=== PATIENT | female | born 1985 | race Caucasian/White ===

== ENCOUNTER → 2017-07-03 15:30 | Outpatient (CLI) | payer SELFPAY ==
[2017-07-04 13:10] LABS: Chlamydia Trachomatis by PCR Negative (Negative); Neisserai gonorrhoeae by PCR Negative (Negative); Probe Check PASS; Sample Adequacy Control PASS; Specimen Processing Control PASS
[2017-07-06 12:21] LABS: HPV Reflexed? NOT INDICATED
== END ==
PROVIDERS: Visit Provider Obstetrics & Gynecology
DX: Z12.4 Encounter for screening for malignant neoplasm of cervix (principal); Z11.3 Encounter for screening for infections with a predominantly sexual mode of transmission
CPT/HCPCS: 87491; 87591; 88175; G0145

== ENCOUNTER → 2018-06-13 | Outpatient (CLI) | payer SELFPAY ==
[2018-06-13 15:46] LABS: Chlamydia Trachomatis by PCR Negative (Negative); Neisserai gonorrhoeae by PCR Negative (Negative); Probe Check PASS; Sample Adequacy Control PASS; Specimen Processing Control PASS
== END | disposition home or self-care (01) ==
LOC: LABSPEC 13:40
PROVIDERS: Visit Provider Obstetrics & Gynecology
DX: Z11.3 Encounter for screening for infections with a predominantly sexual mode of transmission (principal)
CPT/HCPCS: 87491; 87591

== ENCOUNTER → 2018-07-25 | Outpatient (CLI) | payer SELFPAY ==
[2018-07-25 12:45] LABS: Absolute Lymphocyte Count 1.75 X10^3/ul (0.83-4.51); Absolute Neutrophil Count 5.1 X10^3/uL (2.0-7.7); Basophil# 0.02 X10^3/uL; Basophil% 0.3 % (0-1); Eosinophil# 0.05 X10^3/uL; Eosinophils% 0.7 % (0-5); Hematocrit 40.1 % (37-47); Hemoglobin 13.3 g/dl (12.0-15.0); Lymphocyte # 1.75 X10^3/ul (4.0); Lymphocyte % 24.1 % (19-41); Mean Corp Hgb Conc 33.2 g/gl (32-36); Mean Corpuscular Hgb 28.1 pg (27.0-32.0); Mean Corpuscular Volume 84.8 fL (81-99); Mean Platelet Vol. 10.4 fl (6.2-12.0); Monocyte# 0.33 X10^3/uL; Monocyte% 4.5 % (0-10); Neutrophil # 5.12 X10^3/uL (2.7-7.7); Neutrophil % 70.4 % (47-70); Platelet Count 274 K/mm3 (150-450); RBC Distribution Width CV 14.1 % (11.6-14.6); RBC Distribution Width SD 43.8 fl (35.1-43.9); Red Blood Count 4.73 M/mm3 (4.2-5.4); White Blood Count 7.3 K/mm3 (4.4-11.0)
[2018-07-25 13:02] LABS: POSITIVE COUNT NO; POSITIVE DIFFERENTIAL NO
[2018-07-25 13:03] LABS: POSITIVE MORPHOLOGY NO
[2018-07-25 13:11] LABS: Color, Urine Yellow (Yellow); Glucose, Dipstick Normal (Normal); Ketone-Dipstick Negative (Negative); Leukocyte Esterase-Dipstick Negative /ul (Negative); Nitrite-Dipstick Negative (Negative); Occult Blood-Urine Negative /ul (Negative); Protein-Dipstick Negative (Negative); Urine Bilirubin Dipstick Negative (Negative); Urine Clarity Sl. Cloudy (Clear); Urine Urobilinogen Normal (Normal)
[2018-07-25 13:29] LABS: Thyroid Stim Hormone (TSH) 1.87 uIU/mL (0.358-3.74)
[2018-07-25 13:56] LABS: HIV - WCH Non-Reactive (Nonreactive); Rubella IgG 422.1 IU/mL
[2018-07-26 03:32] LABS: Prenatal RPR NONREACTIVE (NONREACTIVE)
[2018-07-26 10:51] LABS: HEPATITIS B SURFACE AG Negative (Negative); Hep C Antibodies 0.2 s/co ratio (0.0-0.9)
== END | disposition home or self-care (01) ==
LOC: WOBLAB 10:31
PROVIDERS: Visit Provider Obstetrics & Gynecology
DX: Z34.82 Encounter for supervision of other normal pregnancy, second trimester (principal)
CPT/HCPCS: 36415; 81002; 84443; 85025; 86703; 86762; 86803; 87340

== ENCOUNTER → 2018-11-06 09:36 | Outpatient (CLI) | payer OTHER, SELFPAY ==
[2018-11-06 10:54] LABS: Glucose Challenge Gest 1H 50g 123 mg/dL (70-140)
[2018-11-06 10:57] LABS: Hematocrit 37.1 % (37-47); Hemoglobin 11.9 g/dL (12.0-15.0); Mean Corp Hgb Conc 32.1 g/dL (32-36); Mean Corpuscular Hgb 28.4 pg (27.0-32.0); Mean Corpuscular Volume 88.5 fL (81-99); Platelet Count 272 K/mm3 (150-450); RBC Distribution Width CV 13.5 % (11.6-14.6); RBC Distribution Width SD 43.6 fl (35.1-43.9); Red Blood Count 4.19 M/mm3 (4.2-5.4); White Blood Count 10.7 K/mm3 (4.4-11.0)
== END ==
PROVIDERS: Visit Provider Obstetrics & Gynecology
DX: Z34.83 Encounter for supervision of other normal pregnancy, third trimester (principal)
CPT/HCPCS: 36415; 82950; 85027

== ENCOUNTER → 2018-12-19 15:58 | Outpatient (CLI) | payer OTHER, SELFPAY ==
[2018-12-19 18:09] LABS: 24 Hour Urine Protein 842.8 mg/24HR (<150 MG/24HR); 24HR. UA Prot. Total Volume 2150 mL; Urine Protein (24 Hour) 39.2 mg/dL (<11.9)
== END ==
PROVIDERS: Referring Provider Obstetrics & Gynecology; Visit Provider Obstetrics & Gynecology
DX: Z34.83 Encounter for supervision of other normal pregnancy, third trimester (principal); R80.9 Proteinuria, unspecified
CPT/HCPCS: 82570; 84156

== ENCOUNTER → 2018-12-25 11:00 | Outpatient (CLI) | payer OTHER, SELFPAY ==
[2018-12-25 14:26] LABS: AST(SGOT) 15 U/L (15-37); Alanine Aminotransfer ALT/SGPT 24 U/L (13-56); Uric Acid 5.2 mg/dL (2.6-6.0)
[2018-12-25 14:30] LABS: Hematocrit 37.9 % (37-47); Hemoglobin 12.2 g/dL (12.0-15.0); Mean Corp Hgb Conc 32.2 g/dL (32-36); Mean Corpuscular Hgb 27.7 pg (27.0-32.0); Mean Corpuscular Volume 86.1 fL (81-99); Mean Platelet Vol. 10.5 fl (6.2-12.0); Platelet Count 284 K/mm3 (150-450); RBC Distribution Width CV 13.6 % (11.6-14.6); RBC Distribution Width SD 42.5 fl (35.1-43.9); White Blood Count 9.7 K/mm3 (4.4-11.0)
== END ==
PROVIDERS: Visit Provider Obstetrics & Gynecology
DX: Z34.83 Encounter for supervision of other normal pregnancy, third trimester (principal); R80.9 Proteinuria, unspecified
CPT/HCPCS: 36415; 84450; 84460; 84550; 85027

== ENCOUNTER 2018-12-31 06:53 | Inpatient (IN) | payer OTHER, SELFPAY ==
[2018-12-30 03:31] VITALS: BMI 45.8
[2018-12-30] MEDS: Lactated Ringers 1,000 ML 50 ML IV (04:05)
[2018-12-30 04:22] LABS: Absolute Lymphocyte Count 1.75 X10^3/uL (0.83-4.51); Absolute Neutrophil Count 9.7 X10^3/uL (2.0-7.7); Basophil# 0.03 X10^3/uL; Basophil% 0.3 % (0-1); Eosinophil# 0.03 X10^3/uL; Eosinophils% 0.3 % (0-5); Hemoglobin 12.2 g/dL (12.0-15.0); Lymphocyte # 1.75 X10^3/ul (4.0); Lymphocyte % 14.6 % (19-41); Mean Corpuscular Volume 85.1 fL (81-99); Mean Platelet Vol. 10.3 fl (6.2-12.0); Monocyte# 0.44 X10^3/uL; Monocyte% 3.7 % (0-10); NRBC Flagged by Analyzer 0 % (0-5); Neutrophil # 9.68 X10^3/uL (2.7-7.7); Neutrophil % 80.8 % (47-70); Platelet Count 266 K/mm3 (150-450); RBC Distribution Width CV 13.7 % (11.6-14.6); RBC Distribution Width SD 42.5 fl (35.1-43.9); Red Blood Count 4.35 M/mm3 (4.2-5.4)
[2018-12-30 05:07] LABS: Group B Strep DNA By PCR Negative (Negative); Internal Control PASS; Probe Check PASS; Specimen Processing Control PASS
--- NOTE | 2018-12-30 05:10 | HP.PCM_ITS ---
History and Physical OG ANTEPARTUM RECORD - HISTORY AND PHYSICAL (12/30/2018) Name: CANDCAE BLANK OB Physician: GALO [place]'s Physician: [facility] ...................................................................... : 1985 Age: 33 Address: [address] [place] [address] Phone: (H) [phone] (O) [phone] Insurance Carrier: Emergency Contact: YOEL BLANK/SPOUSE [phone] ...................................................................... Lorrie is a 33yo at 36w3d gestation by 7w6d US who presented c/o painful contractions every 2-3 minutes that have progressed over the weekend from every 15-20 minutes. She states that she was feeling constipated, and took a dose of castor oil last evening, which alleviated the constipation, but made her contractions more frequent. She denies VB or LOF; she has a history of PTB at 29 weeks, child is now 3yo and healthy, and one SAB in 2018 at 9 weeks; medical history is positive for congenital club foot, and bilateral pelvic kidneys. 24 Hr. urine protein was mildly elevated on 12/19/2018; she did experience an episode of cellulitis on her R leg during this , which resolved with antibiotic therapy; she also is experiencing mild LE vesiculitis with this , well controlled with compression stockings; GBS status is unknown, no hx of infection in previous . has otherwise be en remarkable for AMA, isolated proteinuria at 35 weeks for which patient has been followed with Weekly BPPs and biweekly NSTs,all WNL. Although patient initially indicated in office that she preferred an MD for delivery, she is aware that MD is available for her, but assures this provider that she now is OK with CNM care. Final CICI: 01/24/19 By Ultrasound: 7 weeks 6 days PARITY: (G-Total Pregnancies P-Fullterm,Premature,Induced AB,Spont AB, Ectopics, Multiple,Living) CICI CONFIRMATION: By LMP: 04/13/18 Final CICI: 01/24/19 BLOOD TYPE: AFP: 1 HR PG: GBS: Rublla titer (>10 immune)-- Hepatatis B juliette AG-- CULTURES:-- OB PROBLEM LIST: Lorrie was born with severe club foot. First baby at 29w. 2# 10oz. Duodenal webbing, poly. 6wNICU. Protinuria at 35 weeks isolated; start weekly BPP and twice weekly NST Pt with bilateral pelvic kidneys; check creat with labs z--Prefers MD delivery ALLERGIES: NKA MEDICATIONS: 28 mg iron-800 mcg tablet One pill by mouth once a day pyridoxine (vitamin B6) 50 mg tablet One pill by mouth once a day SOCIAL HISTORY: Smoking - Never Alcohol Use - occasionally not while Diet - balanced Diet, caffeine < 2 drinks per day and Water intake tries for 60- 64 oz daily. Lifestyle - moderate stress lifestyle and Exercise - Enc to walk 20 min day. Employer - [employer] Job Description - [employer] Illicit Drug Use - denies use of street drugs Sexual Activity - Residence - lives w , 2 [address] home Place of - [place], [place] Hours Worked - 24 Spouse-Sig Other Name - Yoel Spouse-Sig Other Occupation - Construction Spouse-Sig Other Phone No - [phone] cell Children Name(s) - Nadia- 29 duodenal webbing-Poly PRIOR DELIVERY HISTORY DEL DATE GEST LAB WT LB WT OZ TYPE ANES LABOR TX 01 Jul 17 9 0 0 0 Sab None No 08 Mar 16 29 0 2 10 Vag None yes ANTEPARTUM FLOW CHART VISIT GE RTC FU F F AZ U U DATE WK MD WKS HT PN HR M SS BP ED WT AZ GL D EF ST __ ____ ___ __ __ ___ __ __ __ ___ __ __ __ ___ __ 06 Dec JMW 1 35 + + 136/70 sl 218 1+ - 2 50 -2 30 Nov 34 JMW 1 35 + + 124/84 sl 220 2+ - 16 Nov JMW 2 34 + + 104/80 0 221 tr - 03 Dec 18 JMW 3 31 + + 132/84 sl 220 tr - Nov 16 JMW 2 29 + + 132/80 0 220 tr - Oct 12 JMW 4 26 + + 128/70 sl 218 tr - Sep 06 JMW 4 20 + + 112/60 sl 218 - - ANTEPARTUM NOTE(S): Dec 25 2018: Ctxs-occas, Good FM, start 2x/wk NST,wk BPP Dec 18 2018: doing well, ck 24 hr urine Dec 04 2018: feeling well. Nov 21 2018: Feeling Well,Good FM Nov 06 2018: CBC,OGCT Today,Good FM,Feeling Well Oct 09 2018: Glucola/Instructions Given,Good FM,Feeling Well Sep 04 2018: Sono Today,Good FM COMPREHENSIVE ANTEPARTUM NOTE(S): Dec 04 2018: (f,*?) 32.5 weeks, reviewed 3rd trimester labs WNL. Hx cellulitis on right leg, but finished course of antibioitcs and much better. Still having some vascular issues on bilateral legs. Reports it only happens during and normally she does wear compression stockings. Reports +FM. FHR 140. No questions or concerns. - CH Nov 06 2018: Feeling well; reports active FM; denies UCs, VB, LOF; experienced episode of cerllulitis in R leg after last PNV treated successfully with antibiotics (Cephalexin) by primary care provider; also experienced episode of vasiculitis at the same time in L leg, also treated by primary care provider, now resolvingt 1 hour Glucola and bloodwork drawn today; discussed warning signs, s/s PTL; RTO 2 week(s) for Nov 06 2018: Hgb 11.9 g/dl. Glucola 123 EB Oct 09 2018: Feeling well, reports active FM, denies UCs, VB, LOF; s/s of PTL, complications to report; reviewed US; does not want to know sex of baby; glucola at next visit Sep 04 2018: Lorrie and Yoel are here for NOB nurse visit with CICI 01-24-19 planning a vag del without an epidural at [facility] [place], using [facility] and to breastfeed. Lorrie is a G 3 P 1 with three year old daughter, Nadia. 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 They are pleased about the pg. Lorrie has NKA to drugs, food, latex or the environment. She is a lifetime non smoker, denies street drug use and occ drinks wine but not in pg. Her diet is well balanced w one cup of coffee daily and she tries to drinks at least 60 oz of water q day. Exercise is minimal although she is busy with her home chores and family as an Shmuel mom besides her job. Enc to walk 20 min daily and she is agreeable. Genetic Screening form completed noting Lorrie was born w a severe club foot requiring multiple surgeries to repair. Nadia was born with duodenal webbing poly at 29 weeks weighing 2# 10 oz at [place]. She had surgery the day of her and spent 16 NICU days. Lorrie pumped breastmilk for her. Today Nadia Is fine and you'd never know she had anything wrong Chip said. They decline CF testing and are too late for AFP. Warning signs in pg reviewed as well as reaching the office after hours, OTC meds ok to take, lifting restriction of 25#, wearing seatbelt ALWAYS and low under abdomen and of the importance of protein in her diet with understanding voiced. An additional copy of office instructions given per her request. She's had chickenpox, they have no cats but she is aware of litter box issues. She has PCOS but no other medical issues. Enc to call w any concerns. Visit lasted 40 min. Eulalio JIANG NEW Jun 13 2019: Candace is being seen for missed menses appt. Positive UPT in office. LMP 04-13-18. Pt is about 8 weeks and 5 days. CICI 01-18-19. Medications and allergies are up to date. Pt due for cultures today, pap done 2018 WNL. information gone over. AM Jun 13 2019: ok REVIEW OF SYSTEMS: GENERAL - Denies fever, or chills SKIN - Denies rash, new skin lesions, or change in moles EYES - Denies blurred vision, or change in visual acuity EARS - Denies ear pain, or difficulty hearing NOSE - Denies nasal congestion, discharge, or bleeding MOUTH - Denies sore throat, or difficulty swallowing NECK - Denies pain or swelling RESPIRATORY - Denies shortness of breath, cough, wheezing CARDIOVASCULAR - Denies palpitations, chest pain, orthopnea, PND, peripheral edema, syncope or claudication GASTROINTESTINAL - Denies nausea, vomiting, diarrhea, constipation, Denies abdominal pain, melena and or bright red blood GENITOURINARY - Denies dysuria, frequency of urination, urgency, or hesitancy MUSCULOSKELETAL - Denies joint or muscle pain, or back pain NEUROLOGICAL - Denies localized numbness, weakness, or tingling PSYCHIATRIC - Denies depression, anxiety, substance abuse or suicide attempts ENDOCRINE - Denies heat or cold intolerance, weight loss or gain, increasing thirst HEMATO-IMMUNOLOGIC - Denies easy bruising, bleeding, oral ulcerations or recurrent infections GENETICS SCREENING: Age 35+ years: No Thalassemia: No Neural Tube Defect: No Down Syndrome: No ZBIGNIEW-SACHS: No Sickle Cell Disease: No Hemophilia: No Musc. Dystrophy: No Cystic Fibrosis: No-declines screening [place] Chorea: No Mental Retardation: No Fragile X: No Other genetic: No Other defects: No SABs/still births: Yes x1 Drugs since LMP: No INFECTION HISTORY: High risk AIDS: No High risk Hepatitis: No Exposed to TB: No Exposed to Herpes: No Rash/viral illness since LMP: No History of STD: No MENSTRUAL HISTORY: *Menses Amount/Duration: 5 to 7 daysMenses Regularity: RegularFrequency: monthlyMenarche (Age Onset): 11* PAST SUMMARY: PARITY: 1. Total Pregnancies............ 3 2. Full Term Pregnancies........ 0 3. Premature.................... 1 4. Abortions - Induced.......... 0 5. Abortions - Spontaneous...... 1 6. Ectopics..................... 0 7. Multiple Births.............. 0 8. Living Children.............. 1 PAST #1: Date of :.................. 03/29/15 Gestation Weeks:................ 29 Length of labor(hours):......... 0 Sex:............................ F Weight-lbs:............... 2 Weight-oz:................ 10 Type of Delivery:............... Vag Type of Anesthesia:............. None Place of Delivery:.............. [facility] Treatment of Labor?:.... yes Comment: 6W NICU. ABD SURG. PAST #2: Date of :.................. 07/20/16 Gestation Weeks:................ 9 Length of labor(hours):......... 0 Sex:............................ UNKNOWN Weight-lbs:............... 0 Weight-oz:................ 0 Type of Delivery:............... Sab Type of Anesthesia:............. None Place of Delivery:.............. HOME Treatment of Labor?:.... No Comment: Labs for : CANDACE BLANK since 04/29/2018 ORDER DATEIN DESCRIPTION VALUE UNITS RANGE A+ COMMENT CBC W/DIFF, AUTOMATED 12/30/18 NOTE Original Ordering Provider: CAROL Haley Castaneda WBC 12.0 K/mm3 4.4-11.0 H RBC 4.35 M/mm3 4.2-5.4 HGB 12.2 g/dL 12.0-15.0 HCT 37.0 % 37-47 MCV 85.1 fL 81-99 MCH 28.0 pg 27.0-32.0 MCHC 33.0 g/dL 32-36 RDW CV 13.7 % 11.6-14.6 RDW SD 42.5 fl 35.1-43.9 PLT 266 K/mm3 150-450 MPV 10.3 fl 6.2-12.0 NEUT% 80.8 % 47-70 H LY% 14.6 % 19-41 L MONO% 3.7 % 0-10 EO% 0.3 % 0-5 BASO% 0.3 % 0-1 IM GRAN % 0.300 % 0.0-0.9 IG% - Immature Granulocytes (promyelocytes, myelocytes and metamyelocytes) > 1% indicates that a LEFT SHIFT is Present. ABSOLUTE NEUT 9.7 X10 3/uL 2.0-7.7 H ABSOLUTE LYMPH 1.75 X10 3/uL 0.83-4.51 NRBC, FLAGGED 0 % 0-5 GROUP B STREP DNA BY PCR 12/30/18 NOTE Original Ordering Provider: BECKIMartha Catsaneda GBS TEST RESULT Negative Negative CBC-COMPLETE BLOOD CNT NO DIFF 12/25/18 NOTE Original Ordering Provider: Bell Reed WBC 9.7 K/mm3 4.4-11.0 RBC 4.40 M/mm3 4.2-5.4 HGB 12.2 g/dL 12.0-15.0 HCT 37.9 % 37-47 MCV 86.1 fL 81-99 MCH 27.7 pg 27.0-32.0 MCHC 32.2 g/dL 32-36 RDW CV 13.6 % 11.6-14.6 RDW SD 42.5 fl 35.1-43.9 PLT 284 K/mm3 150-450 MPV 10.5 fl 6.2-12.0 Reviewed by BELL ALANINE AMINOTRANSFERAS (SGPT) 12/25/18 NOTE Original Ordering Provider: Bell Reed ALT 24 U/L 13-56 Reviewed by BELL URIC ACID 12/25/18 NOTE Original Ordering Provider: Bell Reed URIC 5.2 mg/dL 2.6-6.0 The drugs N-Acetylcysteine and Metamizole may falsely depress this assay. AST(SGOT) 12/25/18 NOTE Original Ordering Provider: Bell Brianna AST 15 U/L 15-37 Reviewed by BELL 24 HR URINE CREATININE 12/19/18 NOTE Original Ordering Provider: Bell Reed UR COLLECT TIME 24.0 HOURS 24.0 UR TOTAL VOLUME 2.20 L URINE CREAT 55.60 mg/dL NO RANGE EST. UR.CREAT/24HR 1.20 g/24 HR 0.70-1.90 Reviewed by BELL PROTEIN, URINE 24HRw 12/19/18 NOTE Original Ordering Provider: Bell Reed UR COLLECT TIME 24.0 HOURS 24.0 w UR TOTAL VOLUME 2150 mL URINE PROTEIN 39.2 mg/dL <11.9 H 24HR UR PROTEIN 842.8 mg/24HR <150 MG/24HR H Reviewed by BELL CBC-COMPLETE BLOOD CNT NO DIFF 11/06/18 NOTE Original Ordering Provider: Bell Reed WBC 10.7 K/mm3 4.4-11.0 RBC 4.19 M/mm3 4.2-5.4 L HGB 11.9 g/dL 12.0-15.0 L HCT 37.1 % 37-47 MCV 88.5 fL 81-99 MCH 28.4 pg 27.0-32.0 MCHC 32.1 g/dL 32-36 RDW CV 13.5 % 11.6-14.6 RDW SD 43.6 fl 35.1-43.9 PLT 272 K/mm3 150-450 MPV 10.0 fl 6.2-12.0 Reviewed by EDUIN GLUCOSE CHALLENGE GEST 1H 50G 11/06/18 NOTE Original Ordering Provider: Bell Reed GLU GEST 50G 1H 123 mg/dL 70-140 Reviewed by EDUIN HEPATITIS C ANTIBODIES 07/25/18 NOTE Original Ordering Provider: Bell Reed HEP C AB 0.2 s/co ratio 0.0-0.9 Negative: < 0.8 Indeterminate: 0.8 - 0.9 Positive: > 0.9 The CDC recommends that a positive HCV antibody result be followed up with a HCV Nucleic Acid Amplification test (306352). Reviewed by EDUIN HEPATITIS B SURFACE AG 07/25/18 NOTE Original Ordering Provider: Bell Reed HB SURF AG Negative Negative Performed at: [address] [id number] Forklift Material Handler: Valeriano Adame PhD, Phone: [phone] Reviewed by EDUIN RPR 07/25/18 NOTE Original Ordering Provider: Bell Reed RPR NONREACTIVE NONREACTIVE Reviewed by BELL T AND S-NO CHARGE W/PNP 07/25/18 Reason for Type AND Screen/Red Cells: Surgery? N [facility]~[address] [place], [address]~ BLOOD TYPE GEL A POSITIVE N AB SCREEN GEL NEGATIVE N Reviewed by BELL HIV - [facility] 07/25/18 NOTE Original Ordering Provider: Bell Reed HIV - [facility] [place] Non-Reactive Nonreactive Reviewed by BELL RUBELLA IGG 07/25/18 NOTE Original Ordering Provider: Bell Reed RUBELLA IGG 422.1 IU/mL w Antibody results Interpretation of Immune Status < 5 IU/ml Presumed Non-immune 5 - < 10 IU/ml Equivocal > or = 10 IU/ml Presumed Immune Reviewed by BELL THYROID STIM HORMONE (TSH) 07/25/18 NOTE Original Ordering Provider: Bell Reed TSH 1.87 uIU/mL 0.358-3.74 Reviewed by BELL URINALYSIS, ROUTINE (DIPSTICK) 07/25/18 NOTE Original Ordering Provider: eBll Reed COLOR Yellow Yellow CLARITY Sl. Cloudy Clear GLUCOSE, UR Normal mg/dl Normal BILIRUBIN URINE Negative mg/dL Negative KETONE UR Negative mg/dl Negative SP.GR. DIPSTX 1.010 1.002-1.030 PH UR 7.0 5.0 - 8.0 PROT DIPSTX Negative mg/dl Negative UROBILI Normal mg/dl Normal NITRITE UR Negative Negative OCCULT BLOOD-UR Negative /ul Negative LEUK ESTERASE Negative /ulw Negative Reviewed by BELL CBC W/DIFF, AUTOMATED 07/25/18 NOTE Original Ordering Provider: Bell Reed WBC 7.3 K/mm3 4.4-11.0 RBC 4.73 M/mm3 4.2-5.4 HGB 13.3 g/dl 12.0-15.0 HCT 40.1 % 37-47 MCV 84.8 fL 81-99 MCH 28.1 pg 27.0-32.0 MCHC 33.2 g/gl 32-36 RDW CV 14.1 % 11.6-14.6 RDW SD 43.8 fl 35.1-43.9 PLT 274 K/mm3 150-450 MPV 10.4 fl 6.2-12.0 NEUT% 70.4 % 47-70 H LY% 24.1 % 19-41 MONO% 4.5 % 0-10 EO% 0.7 % 0-5 BASO% 0.3 % 0-1 IM GRAN % 0.000 % 0.0-0.9 IG% - Immature Granulocytes (promyelocytes, myelocytes and metamyelocytes) > 1% indicates that a LEFT SHIFT is Present. ABSOLUTE NEUT 5.1 X10 3/uL 2.0-7.7 ABSOLUTE LYMPH 1.75 X10 3/ul 0.83-4.51 Reviewed by BELL KO/JHONATAN [facility] [place] BY PCR 06/13/18 NOTE Original Ordering Provider: Bell [facility] PCR Negative Negative JHONATAN BY PCR Negative Negative Reviewed by BELL PROVIDER SIGNATURE ( REQUIRED) Admission Labs: WBC: 12.0 Hgb: 12.2 Hct: 37.0 Plts: 266 BMP: pending Rapid GBS: pending PHYSICAL EXAMINATION General Appearence: 33 yo female in no acute distress Vital Signs: AF, VSS w/exception of mild tachycardia, otherwise asymptomatic Heart: RRR without rubs or gallops Lungs: CTA x 2 Breasts: deferred Abdomen: gravid Pelvis: Cervix: 4/80/-3 per RN at 0258 Presentation: cephalic per Leopolds and bedside US via this provider Fetus: Size: AGA Movement: present Heart: 145 baseline, moderate variability, accels present, no decels Contractions: Q 2-3 Impression: 33yo at 36w3d gestation by 7w6d US R/O PTL GBS unknown Maternal bilateral pelvic kidneys Plan: Admit for PTL Continuous EFM 1,000 ml LR bolus, then continue at 125 ml/hr GBS prophylaxis corticosteroids BMP Expectant management Pediatrics at delivery if labor progresses
[2018-12-30] MEDS: Betamethasone/Betamethasone 30 MG/5 ML Vial 12 MG IM (05:15)
--- NOTE | 2018-12-30 05:37 | PN.OBGYN_ITS ---
Subjective: Feeling contractions, rates 5/10, states tolerable Objective: AVSS, HR 114, no cx pain, light headedness, dizziness or cyanosis FHTs: 150 baseline, moderate variability,accels present, no decels UCs: Q2-3.5 Cervix: unchanged at 4/50/-3,soft, anterior - Physical Exam Vitals/I&O's: Weight: 219 lb Body Mass Index (BMI) 45.8 Intake and Output for Last 24 Hours 12/28/18 12/29/18 12/30/18 23:59 23:59 23:59 Intake Total 45.83 / 45.83 Balance 45.83 / 45.83 General: Alert, Oriented x3, Cooperative, No apparent distress HEENT: PERRLA, EOMI Oral: Moist Mucosa Neck: Supple Lungs: Clear to auscultation Cardiovascular: Regular rate, Regular Rhythm Abdomen: Bowel Sounds Present, Soft, Non Tender, Non-Distended, Passing Flatus, Bowel Sounds Not Present, Gravid Extremities: No cyanosis, Capillary Refill Less than 3 Seconds, No Calf Tenderness, Clubbing - R foot, congenital club foot, Edema - mild, bilateral lower extremities, non pitting Skin: No rashes Musculoskeletal: No Tenderness to Palpation of Joints or Extremities Neurological: Cranial nerves II-XII grossly intact, Deep Tendon Reflexes 2+/4 and Symmetrical Psych/Mental Status: Normal Affect, Appropriate, Alert and oriented to time, place, person, mood and affect Laboratory Results 12/30/18 03:30: Group B Strep DNA Negative, Specimen Comment Not Reportable 12/30/18 04:05: WBC 12.0 H, RBC 4.35, Hgb 12.2, Hct 37.0, MCV 85.1, MCH 28.0, MCHC 33.0, RDW Std Deviation 42.5, RDW Coeff of Sohail 13.7, Plt Count 266, MPV 10.3, Immature Gran % (Auto) 0.300, Neut % (Auto) 80.8 H, Lymph % (Auto) 14.6 L, [place] % (Auto) 3.7, Eos % (Auto) 0.3, Baso % (Auto) 0.3, Absolute Neuts (auto) 9.7 H, Absolute Lymphs (auto) 1.75, Nucleated RBC % 0 12/30/18 04:05: Blood Type A POSITIVE, Antibody Screen NEGATIVE 12/30/18 05:12: Sodium Pending, Potassium Pending, Chloride Pending, Carbon Dioxide Pending, Anion Gap Pending, BUN Pending, Creatinine Pending, Est GFR (MDRD) Af Amer Pending, Est GFR (MDRD) Non-Af Pending, BUN/Creatinine Ratio Pending, Glucose Pending, Calcium Pending Current Medications Acetaminophen (Tylenol) 325 - 650 mg PO Q4H PRN PRN PRN Reason: Pain Score 1-3/10 Al Hydroxide/Mg Hydroxide (Mylanta Ii) 15 - 30 ml PO Q4H PRN PRN PRN Reason: INDIGESTION Citric Acid/Sodium Citrate (Bicitra) 30 ml PO X1 PRN PRN Reason: Section Penicillin G Potassium/Dextrose (Penicillin G Potassium) 3 mu in 50 mls @ 100 mls/hr IV Q4H [facility] Lactated Ringer's () 500 mls @ 999 mls/hr IV .Q31M PRN PRN Reason: Epidural Lactated Ringer's () 500 mls @ 999 mls/hr IV .Q31M PRN PRN Reason: Corrective Measures Lactated Ringer's () 1,000 mls @ 50 mls/hr IV .Q20H [facility] Last Infusion: 12/30/18 05:00 Dose: 0 mls/hr Documented by: Nalbuphine HCl (Nubain) 5 - 10 mg IV Q3H PRN PRN PRN Reason: Pain Score 4-10/10 Ondansetron HCl (Zofran) 4 mg IV Q4H PRN PRN PRN Reason: NAUSEA Prochlorperazine Edisylate (Compazine Iv) 10 mg IV Q6H PRN PRN PRN Reason: NAUSEA Sodium Chloride () 10 - 40 ml IV X1 PRN PRN Reason: SALINE FLUSH Medical Necessity - Tobacco Use Smoking Status: Never smoker Assessment/Plan Assessment: 33 yo at 3623d gestation per 7w6d US R/O PTL GBS unknown by culture, negative by rapid GBS Cat 1 FHTs [place], no cervical change Plan: Continued observation corticosteroid dose #1 given Continue GBS prophylaxis Recheck cervix in 2 hours
[2018-12-30 05:48] LABS: Anion Gap 10 (5-15); BUN 10 mg/dL (7-18); BUN/Creat Ratio 15.3 RATIO (10-20); Calcium,Total 8.6 mg/dL (8.5-10.1); Chloride 108 mmol/L (98-107); Creatinine, Serum 0.65 mg/dL (0.55-1.02); EST Glomerular Filtration Rate 110 mL/min (>60); Est Glom Filt Rate - Afr Amer 133 mL/min (>60); Estimated Creatinine Clearance 189.44 ml/min; Glucose 92 mg/dL (74-106); Potassium 3.6 mmol/L (3.5-5.1); Sodium Level 139 mmol/L (136-145)
[2018-12-30] MEDS: Acetaminophen 325 MG Tablet PO (06:42)
--- NOTE | 2018-12-30 09:00 | PN.OBGYN_ITS ---
Patient Problems: Active and Suspected Problems 36 weeks gestation of (Acute) 36 weeks gestation of (Acute) Subjective: Still feeling contractions, but not as often. When they do come they still hurt just as bad as overnight. Expressing concerns with possible discharge because of living 45 minutes away. Would like to speak to Dr. Reed about plan of care. Objective: Resting in bed upon typewriters functional tester entering room, smiling. Agreed to SVE check to establish POC. SVE 4/50/-2 soft anterior. Unchanged exam since admission at 0230. UC Q2-6 minutes, mild. FHR baseline 150, moderate variability, + accels, negative for decels, Category 1 tracing. Discussed POC since unchanged exam. Option of observation with steroids and antibiotics or could discharge home and return for second dose of steroids. States she lives 45 minutes away and is nervous to discharge. Wishes to speak with Dr. Reed about POC when he is available. - Physical Exam Vitals/I&O's: Weight: 99.337 kg Body Mass Index (BMI) 45.8 Intake and Output for Last 24 Hours 12/28/18 12/29/18 12/30/18 23:59 23:59 23:59 Intake Total 45.83 / 45.83 Balance 45.83 / 45.83 General: Alert, Oriented x3, Cooperative HEENT: Atraumatic, PERRLA, EOMI, Normocephalic Neck: Supple, No JVD, Negative Carotid Bruits Lungs: Clear to auscultation, Normal air movement Cardiovascular: Regular rate, No murmurs Abdomen: Bowel Sounds Present, Soft, Non Tender Extremities: No edema, Capillary Refill Less than 3 Seconds Skin: No rashes, No breakdown Musculoskeletal: No Tenderness to Palpation of Joints or Extremities Neurological: Cranial nerves II-XII grossly intact Psych/Mental Status: Normal Affect, Appropriate Laboratory Results 12/30/18 03:30: Group B Strep DNA Negative, Specimen Comment Not Reportable 12/30/18 04:05: WBC 12.0 H, RBC 4.35, Hgb 12.2, Hct 37.0, MCV 85.1, MCH 28.0, MCHC 33.0, RDW Std Deviation 42.5, RDW Coeff of Sohail 13.7, Plt Count 266, MPV 10.3, Immature Gran % (Auto) 0.300, Neut % (Auto) 80.8 H, Lymph % (Auto) 14.6 L, [place] % (Auto) 3.7, Eos % (Auto) 0.3, Baso % (Auto) 0.3, Absolute Neuts (auto) 9.7 H, Absolute Lymphs (auto) 1.75, Nucleated RBC % 0 12/30/18 04:05: Blood Type A POSITIVE, Antibody Screen NEGATIVE 12/30/18 05:12: Sodium 139, Potassium 3.6, Chloride 108 H, Carbon Dioxide 21.0, Anion Gap 10, BUN 10, Creatinine 0.65, Estim Creat Clear Calc 189.44, Est GFR (MDRD) Af Amer 133, Est GFR (MDRD) Non-Af 110, BUN/Creatinine Ratio 15.3, Glucose 92, Calcium 8.6 Current Medications Acetaminophen (Tylenol) 325 - 650 mg PO Q4H PRN PRN PRN Reason: Pain Score 1-3/10 Last Admin: 12/30/18 06:42 Dose: 650 mg Documented by: Al Hydroxide/Mg Hydroxide (Mylanta Ii) 15 - 30 ml PO Q4H PRN PRN PRN Reason: INDIGESTION Citric Acid/Sodium Citrate (Bicitra) 30 ml PO X1 PRN PRN Reason: Section Penicillin G Potassium/Dextrose (Penicillin G Potassium) 3 mu in 50 mls @ 100 mls/hr IV Q4H [facility] Lactated Ringer's () 500 mls @ 999 mls/hr IV .Q31M PRN PRN Reason: Epidural Lactated Ringer's () 500 mls @ 999 mls/hr IV .Q31M PRN PRN Reason: Corrective Measures Lactated Ringer's () 1,000 mls @ 50 mls/hr IV .Q20H [facility] Last Infusion: 12/30/18 05:00 Dose: 0 mls/hr Documented by: Nalbuphine HCl (Nubain) 5 - 10 mg IV Q3H PRN PRN PRN Reason: Pain Score 4-10/10 Ondansetron HCl (Zofran) 4 mg IV Q4H PRN PRN PRN Reason: NAUSEA Prochlorperazine Edisylate (Compazine Iv) 10 mg IV Q6H PRN PRN PRN Reason: NAUSEA Sodium Chloride () 10 - 40 ml IV X1 PRN PRN Reason: SALINE FLUSH Medical Necessity - Tobacco Use Smoking Status: Never smoker Assessment/Plan All Active Problems 36 weeks gestation of (Acute) 36 weeks gestation of (Acute)
--- NOTE | 2018-12-30 10:48 | PCM.PN.BLA ---
Progress Note Spoke with Dr. Reed about patient's wishes to talk to him before making a POC for possible discharge. Will give her a few more hours, then revisit. RN called with update and okay to let patient eat. Will recheck at 1300.
[2018-12-30] MEDS: 0.9% Saline Lock 10 ML Syringe IV (11:08)
--- NOTE | 2018-12-30 12:24 | PCM.PN.OB ---
Patient Problems: Active and Suspected Problems 36 weeks gestation of (Acute) 36 weeks gestation of (Acute) Subjective: reports contractions have spaced out and random. In no pain currently. Objective: SVE outer os 6 funnels to inner os 4. 6/50%/-2 mid anterior. Spoke with collaborating MD Dr. Reed. Decision to keep overnight for observation. Will receive second dose of steroids in AM at 24 hour tisha. Will get 24 hour urine for protein/creatine clearance d/t previously elevated protein in urine in office. Patient can be regular diet, INT and NST qshift. - Physical Exam Vitals/I&O's: Weight: 99.337 kg Body Mass Index (BMI) 45.8 Intake and Output for Last 24 Hours 12/28/18 12/29/18 12/30/18 23:59 23:59 23:59 Intake Total 1000.00 / 1000.00 Balance 1000.00 / 1000.00 General: Alert, Oriented x3, Cooperative HEENT: Atraumatic, PERRLA, EOMI, Normocephalic Neck: Supple, No JVD, Negative Carotid Bruits Lungs: Clear to auscultation, Normal air movement Cardiovascular: Regular rate, No murmurs Abdomen: Bowel Sounds Present, Soft, Non Tender Extremities: No edema, Capillary Refill Less than 3 Seconds Skin: No rashes, No breakdown Musculoskeletal: No Tenderness to Palpation of Joints or Extremities Neurological: Cranial nerves II-XII grossly intact Psych/Mental Status: Normal Affect, Appropriate Laboratory Results 12/30/18 03:30: Group B Strep DNA Negative, Specimen Comment Not Reportable 12/30/18 04:05: WBC 12.0 H, RBC 4.35, Hgb 12.2, Hct 37.0, MCV 85.1, MCH 28.0, MCHC 33.0, RDW Std Deviation 42.5, RDW Coeff of Sohail 13.7, Plt Count 266, MPV 10.3, Immature Gran % (Auto) 0.300, Neut % (Auto) 80.8 H, Lymph % (Auto) 14.6 L, Scott % (Auto) 3.7, Eos % (Auto) 0.3, Baso % (Auto) 0.3, Absolute Neuts (auto) 9.7 H, Absolute Lymphs (auto) 1.75, Nucleated RBC % 0 12/30/18 04:05: Blood Type A POSITIVE, Antibody Screen NEGATIVE 12/30/18 05:12: Sodium 139, Potassium 3.6, Chloride 108 H, Carbon Dioxide 21.0, Anion Gap 10, BUN 10, Creatinine 0.65, Estim Creat Clear Calc 189.44, Est GFR (MDRD) Af Amer 133, Est GFR (MDRD) Non-Af 110, BUN/Creatinine Ratio 15.3, Glucose 92, Calcium 8.6 Current Medications Acetaminophen (Tylenol) 325 - 650 mg PO Q4H PRN PRN PRN Reason: Pain Score 1-3/10 Last Admin: 12/30/18 06:42 Dose: 650 mg Documented by: Al Hydroxide/Mg Hydroxide (Mylanta Ii) 15 - 30 ml PO Q4H PRN PRN PRN Reason: INDIGESTION Citric Acid/Sodium Citrate (Bicitra) 30 ml PO X1 PRN PRN Reason: Section Penicillin G Potassium/Dextrose (Penicillin G Potassium) 3 mu in 50 mls @ 100 mls/hr IV Q4H SADNY Lactated Ringer's () 500 mls @ 999 mls/hr IV .Q31M PRN PRN Reason: Epidural Lactated Ringer's () 500 mls @ 999 mls/hr IV .Q31M PRN PRN Reason: Corrective Measures Lactated Ringer's () 1,000 mls @ 50 mls/hr IV .Q20H SANDY Last Infusion: 12/30/18 11:08 Dose: Infused Documented by: Nalbuphine HCl (Nubain) 5 - 10 mg IV Q3H PRN PRN PRN Reason: Pain Score 4-10/10 Ondansetron HCl (Zofran) 4 mg IV Q4H PRN PRN PRN Reason: NAUSEA Prochlorperazine Edisylate (Compazine Iv) 10 mg IV Q6H PRN PRN PRN Reason: NAUSEA Sodium Chloride () 10 - 40 ml IV X1 PRN PRN Reason: SALINE FLUSH Last Admin: 12/30/18 11:08 Dose: 10 ml Documented by: Medical Necessity - Tobacco Use Smoking Status: Never smoker Assessment/Plan All Active Problems 36 weeks gestation of (Acute) 36 weeks gestation of (Acute)
[2018-12-31] MEDS: Betamethasone/Betamethasone 30 MG/5 ML Vial 12 MG IM (05:50)
[2018-12-31] MEDS: 0.9% Saline Lock 10 ML Syringe IV (06:01)
--- NOTE | 2018-12-31 07:07 | PCM.PN.OB ---
Patient Problems: Active and Suspected Problems 36 weeks gestation of (Acute) 36 weeks gestation of (Acute) Subjective: States overnight had a few strong contractions rating them a 6/10. Feels well this morning. Objective: SVE 6/80/-2 soft anterior. FHR basline lower overnight at 115, + accels, -decels, moderate variability. Smiling up in bed, rested. - Physical Exam Vitals/I&O's: Weight: 99.337 kg Body Mass Index (BMI) 45.8 Intake and Output for Last 24 Hours 12/29/18 12/30/18 12/31/18 23:59 23:59 23:59 Intake Total 1105.00 / 1105.00 Balance 1105.00 / 1105.00 General: Alert, Oriented x3, Cooperative HEENT: Atraumatic, PERRLA, EOMI, Normocephalic Neck: Supple, No JVD, Negative Carotid Bruits Lungs: Clear to auscultation, Normal air movement Cardiovascular: Regular rate, No murmurs Abdomen: Bowel Sounds Present, Soft, Non Tender Extremities: No edema, Capillary Refill Less than 3 Seconds Skin: No rashes, No breakdown Musculoskeletal: No Tenderness to Palpation of Joints or Extremities Neurological: Cranial nerves II-XII grossly intact Psych/Mental Status: Normal Affect, Appropriate Current Medications Acetaminophen (Tylenol) 325 - 650 mg PO Q4H PRN PRN PRN Reason: Pain Score 1-3/10 Last Admin: 12/30/18 06:42 Dose: 650 mg Documented by: Al Hydroxide/Mg Hydroxide (Mylanta Ii) 15 - 30 ml PO Q4H PRN PRN PRN Reason: INDIGESTION Citric Acid/Sodium Citrate (Bicitra) 30 ml PO X1 PRN PRN Reason: Section Lactated Ringer's () 500 mls @ 999 mls/hr IV .Q31M PRN PRN Reason: Epidural Lactated Ringer's () 500 mls @ 999 mls/hr IV .Q31M PRN PRN Reason: Corrective Measures Lactated Ringer's () 1,000 mls @ 50 mls/hr IV .Q20H [facility] Last Infusion: 12/30/18 11:08 Dose: Infused Documented by: Nalbuphine HCl (Nubain) 5 - 10 mg IV Q3H PRN PRN PRN Reason: Pain Score 4-10/10 Ondansetron HCl (Zofran) 4 mg IV Q4H PRN PRN PRN Reason: NAUSEA Prochlorperazine Edisylate (Compazine Iv) 10 mg IV Q6H PRN PRN PRN Reason: NAUSEA Sodium Chloride () 10 - 40 ml IV X1 PRN PRN Reason: SALINE FLUSH Last Admin: 12/31/18 06:01 Dose: 10 ml Documented by: Medical Necessity - Tobacco Use Smoking Status: Never smoker Assessment/Plan All Active Problems 36 weeks gestation of (Acute) 36 weeks gestation of (Acute) Latent labor with advanced dilation NST tracing category 1 Plan to augment labor with Pitocin d/t advanced dilation and distance from hospital.
[2018-12-31] MEDS: Lactated Ringers 1,000 ML 50 ML IV (08:23)
[2018-12-31] MEDS: Oxytocin 30 units/NS 500 ml 30 UNITS/500 ML IV.SOLN IV (08:25)
[2018-12-31 11:45] LABS: 24 Hour Urine Protein 542.7 mg/24HR (<150 MG/24HR); 24HR. UA Prot. Total Volume 1675 mL; Urine Protein (24 Hour) 32.4 mg/dL (<11.9)
[2018-12-31 11:52] LABS: 24HR. Urine Creatinine 1.31 g/24 HR (0.70-1.90)
[2018-12-31 11:54] LABS: Protein, Urine (Random) 31.7 mg/dL (<11.9); Protein:Creat Ratio 406 mg/g CRE (0-200)
--- NOTE | 2018-12-31 13:21 | PN_ITS ---
Progress Note 33yo at 36 4/7wga hx isolated proteinuria admitted with advanced cervical dilation after taking [place] Oil for constipation and progressing to 6cm dilation spontaneously . s/p BMZ x 2, last dose this morning now with no significant contractions. Reports contractions twice an hour at most. No leaking of fluid or vaignal bleeding. Denies headache, vision changes. AVSS GEN - NAD, AAO x 3 , well appearing FHR 120, moderate variability, + accelerations, no decelerations TOCO 0/10 min SVE deferred, recent exam /-2 per CNM A/P: 1. Proteinuria - no evidence of preeclampsia, preeclamptic labs 12/25/18 wnl. Repeat 24h urine 542.7g. 2. labor - arrested. Pitocin discontinued this morning given late with < 24h post second dose of betamethasone. sex unknown. Reviewed with patient optimal delivery timing, associated risks of late , particularly if male . No sign of imminent delivery. Will continue observation at this time. Patient in agreement with plan and given opportunity to ask questions. Patient questions answered to her satisfaction. Will re- evaluate later today.
[2019-01-01] MEDS: Lactated Ringers 1,000 ML 50 ML IV (04:58)
[2019-01-01] MEDS: 0.9% Saline Lock 10 ML Syringe IV ×2 (04:58→22:52)
--- NOTE | 2019-01-01 05:46 | PN.OBGYN_ITS ---
Patient Problems: Active and Suspected Problems 36 weeks gestation of (Acute) 36 weeks gestation of (Acute) Subjective: Reports irregular contractions overnight, but strong 5/10 pain. Objective: FHR baseline 140, + accels with moderate variability. Variables and two late decels noted since 0100. Irregular contractions, average 2/hour. SVE 6-7/80/-2 soft mid - Physical Exam Vitals/I&O's: Weight: 99.337 kg Body Mass Index (BMI) 45.8 Intake and Output for Last 24 Hours 12/30/18 12/31/18 01/01/19 23:59 23:59 23:59 Intake Total 1105.00 / 1105.00 45.50 / 45.50 27.5 / 27.5 Balance 1105.00 / 1105.00 45.50 / 45.50 27.5 / 27.5 General: Alert, Oriented x3, Cooperative HEENT: Atraumatic, PERRLA, EOMI, Normocephalic Neck: Supple, No JVD, Negative Carotid Bruits Lungs: Clear to auscultation, Normal air movement Cardiovascular: Regular rate, No murmurs Abdomen: Bowel Sounds Present, Soft, Non Tender Extremities: No edema, Capillary Refill Less than 3 Seconds Skin: No rashes, No breakdown Musculoskeletal: No Tenderness to Palpation of Joints or Extremities Neurological: Cranial nerves II-XII grossly intact Psych/Mental Status: Normal Affect, Appropriate Laboratory Results 12/31/18 10:30: Ur Collection Duration 24.0, Urine Total Volume 1.70, Urine Creatinine 78.20, Ur Creatinine 24 Hour 1.31 12/31/18 10:30: U Random Total Protein 31.7 H, Urine Creatinine 78.10, Prote in/Creatinin Ratio 406 H 12/31/18 10:30: Urine Collection Time 24.0, Timed Urine Volume 1675, Ur Total Protein 24 Hr 542.7 H, Urine Total Protein 32.4 H Current Medications Acetaminophen (Tylenol) 325 - 650 mg PO Q4H PRN PRN PRN Reason: Pain Score 1-3/10 Last Admin: 12/30/18 06:42 Dose: 650 mg Documented by: Al Hydroxide/Mg Hydroxide (Mylanta Ii) 15 - 30 ml PO Q4H PRN PRN PRN Reason: INDIGESTION Citric Acid/Sodium Citrate (Bicitra) 30 ml PO X1 PRN PRN Reason: Section Lactated Ringer's () 500 mls @ 999 mls/hr IV .Q31M PRN PRN Reason: Epidural Lactated Ringer's () 500 mls @ 999 mls/hr IV .Q31M PRN PRN Reason: Corrective Measures Lactated Ringer's () 1,000 mls @ 50 mls/hr IV .Q20H [facility] Last Infusion: 01/01/19 05:31 Dose: 200 mls/hr Documented by: Oxytocin/Sodium Chloride () 30 units in 500 mls @ 2 mls/hr IV .Q250H [facility] Nalbuphine HCl (Nubain) 5 - 10 mg IV Q3H PRN PRN PRN Reason: Pain Score 4-10/10 Ondansetron HCl (Zofran) 4 mg IV Q4H PRN PRN PRN Reason: NAUSEA Prochlorperazine Edisylate (Compazine Iv) 10 mg IV Q6H PRN PRN PRN Reason: NAUSEA Sodium Chloride () 10 - 40 ml IV X1 PRN PRN Reason: SALINE FLUSH Last Admin: 01/01/19 04:58 Dose: 10 ml Documented by: Medical Necessity - Tobacco Use Smoking Status: Never smoker Assessment/Plan All Active Problems 36 weeks gestation of (Acute) 36 weeks gestation of (Acute) Arrest of active labor Category II FHR tracing at 0530 with baseline 140, +accels, variables, and moderate variability Attending Dr. Reed assessed patient. Decision to augment labor with AROM. Internal monitors placed. Will plan to augment with Pitocin if needed.
--- NOTE | 2019-01-01 09:48 | PCM.PN.OB ---
Patient Problems: Active and Suspected Problems 36 weeks gestation of (Acute) 36 weeks gestation of (Acute) Subjective: Uncomfortable with contractions, denies need for medication or epidural at this time; bedside and supportive Objective: AVSS FHTs:145 baseline, moderate variability, +accels, recurrent Q variables UCs:Q 10-12 minutes Cervix 6/75/-2 at 0900 per RN - Physical Exam Vitals/I&O's: Weight: 219 lb Body Mass Index (BMI) 45.8 Intake and Output for Last 24 Hours 12/30/18 12/31/18 01/01/19 23:59 23:59 23:59 Intake Total 1105.00 / 1105.00 45.50 / 45.50 27.5 / 27.5 Output Total 200 / 200 Balance 1105.00 / 1105.00 45.50 / 45.50 -172.5 / -172.5 General: Alert, Oriented x3, Cooperative, No apparent distress HEENT: PERRLA, EOMI Oral: Moist Mucosa Neck: Supple Lungs: Clear to auscultation, Normal air movement Cardiovascular: Regular rate, Regular Rhythm Abdomen: Bowel Sounds Present, Soft, Non Tender, Passing Flatus, Gravid Extremities: Capillary Refill Less than 3 Seconds, No Calf Tenderness Musculoskeletal: No Tenderness to Palpation of Joints or Extremities Neurological: Cranial nerves II-XII grossly intact, Deep Tendon Reflexes 2+/4 and Symmetrical Psych/Mental Status: Normal Affect, Appropriate, Alert and oriented to time, place, person, mood and affect Laboratory Results 12/31/18 10:30: Ur Collection Duration 24.0, Urine Total Volume 1.70, Urine Creatinine 78.20, Ur Creatinine 24 Hour 1.31 12/31/18 10:30: U Random Total Protein 31.7 H, Urine Creatinine 78.10, Protein/Creatinin Ratio 406 H 12/31/18 10:30: Urine Collection Time 24.0, Timed Urine Volume 1675, Ur Total Protein 24 Hr 542.7 H, Urine Total Protein 32.4 H Current Medications Acetaminophen (Tylenol) 325 - 650 mg PO Q4H PRN PRN PRN Reason: Pain Score 1-3/10 Last Admin: 12/30/18 06:42 Dose: 650 mg Documented by: Al Hydroxide/Mg Hydroxide (Mylanta Ii) 15 - 30 ml PO Q4H PRN PRN PRN Reason: INDIGESTION Citric Acid/Sodium Citrate (Bicitra) 30 ml PO X1 PRN PRN Reason: Section Lactated Ringer's () 500 mls @ 999 mls/hr IV .Q31M PRN PRN Reason: Epidural Lactated Ringer's () 500 mls @ 999 mls/hr IV .Q31M PRN PRN Reason: Corrective Measures Lactated Ringer's () 1,000 mls @ 50 mls/hr IV .Q20H SANDY Last Infusion: 01/01/19 05:31 Dose: 200 mls/hr Documented by: Oxytocin/Sodium Chloride () 30 units in 500 mls @ 2 mls/hr IV .Q250H SANDY Nalbuphine HCl (Nubain) 5 - 10 mg IV Q3H PRN PRN PRN Reason: Pain Score 4-10/10 Ondansetron HCl (Zofran) 4 mg IV Q4H PRN PRN PRN Reason: NAUSEA Prochlorperazine Edisylate (Compazine Iv) 10 mg IV Q6H PRN PRN PRN Reason: NAUSEA Sodium Chloride () 10 - 40 ml IV X1 PRN PRN Reason: SALINE FLUSH Last Admin: 01/01/19 04:58 Dose: 10 ml Documented by: Medical Necessity - Tobacco Use Smoking Status: Never smoker Assessment/Plan All Active Problems 36 weeks gestation of (Acute) 36 weeks gestation of (Acute) Assessment: 33yo at 36w5d gestation by 7w6d US Early labor Inadequate contraction pattern AROMED x 4 hrs Cat 2 FHTs Plan: Continuous EFM Close observation
[2019-01-01] MEDS: Lactated Ringers 1,000 ML 200 ML IV ×2 (10:19→17:46)
[2019-01-01] MEDS: Oxytocin 30 units/NS 500 ml 30 UNITS/500 ML IV.SOLN IV (11:17)
--- NOTE | 2019-01-01 11:20 | PN.OBGYN_ITS ---
Patient Problems: Active and Suspected Problems 36 weeks gestation of (Acute) 36 weeks gestation of (Acute) Objective: AVSS FHTs:145, moderate variability UCs: Q 7-10 minutes Cervix: exam deferred - Physical Exam Vitals/I&O's: Weight: 219 lb Body Mass Index (BMI) 45.8 Intake and Output for Last 24 Hours 12/30/18 12/31/18 01/01/19 23:59 23:59 23:59 Intake Total 1105.00 / 1105.00 45.50 / 45.50 987.5 / 987.5 Output Total 200 / 200 Balance 1105.00 / 1105.00 45.50 / 45.50 787.5 / 787.5 Laboratory Results 12/31/18 10:30: Ur Collection Duration 24.0, Urine Total Volume 1.70, Urine Creatinine 78.20, Ur Creatinine 24 Hour 1.31 12/31/18 10:30: U Random Total Protein 31.7 H, Urine Creatinine 78.10, Protein/Creatinin Ratio 406 H 12/31/18 10:30: Urine Collection Time 24.0, Timed Urine Volume 1675, Ur Total Protein 24 Hr 542.7 H, Urine Total Protein 32.4 H Current Medications Acetaminophen (Tylenol) 325 - 650 mg PO Q4H PRN PRN PRN Reason: Pain Score 1-3/10 Last Admin: 12/30/18 06:42 Dose: 650 mg Documented by: Al Hydroxide/Mg Hydroxide (Mylanta Ii) 15 - 30 ml PO Q4H PRN PRN PRN Reason: INDIGESTION Citric Acid/Sodium Citrate (Bicitra) 30 ml PO X1 PRN PRN Reason: Section Lactated Ringer's () 500 mls @ 999 mls/hr IV .Q31M PRN PRN Reason: Epidural Lactated Ringer's () 500 mls @ 999 mls/hr IV .Q31M PRN PRN Reason: Corrective Measures Lactated Ringer's () 1,000 mls @ 50 mls/hr IV .Q20H [facility] Last Admin: 01/01/19 10:19 Dose: 200 mls/hr Documented by: Oxytocin/Sodium Chloride () 30 units in 500 mls @ 2 mls/hr IV .Q250H [facility] Last Admin: 01/01/19 11:17 Dose: 1 mls/hr Documented by: Nalbuphine HCl (Nubain) 5 - 10 mg IV Q3H PRN PRN PRN Reason: Pain Score 4-10/10 Ondansetron HCl (Zofran) 4 mg IV Q4H PRN PRN PRN Reason: NAUSEA Prochlorperazine Edisylate (Compazine Iv) 10 mg IV Q6H PRN PRN PRN Reason: NAUSEA Sodium Chloride () 10 - 40 ml IV X1 PRN PRN Reason: SALINE FLUSH Last Admin: 01/01/19 04:58 Dose: 10 ml Documented by: Medical Necessity - Tobacco Use Smoking Status: Never smoker Assessment/Plan All Active Problems 36 weeks gestation of (Acute) 36 weeks gestation of (Acute) Assessment: 33yo at 36w5d gestation by 7w6d Early, likely non progressive labor AROM x 6 hours Plan: D/w Dr. Reed Start pitocin at 1mu continuously, no increases at this time Close observation, continuous EFM
[2019-01-01] MEDS: Lactated Ringers 500 ML 999 ML IV ×3 (13:01→15:42)
--- NOTE | 2019-01-01 13:06 | PN.OBGYN_ITS ---
Patient Problems: Active and Suspected Problems 36 weeks gestation of (Acute) 36 weeks gestation of (Acute) Objective: AVSS FHTs: 155 baseline, moderate variability, variable decels UCs: Q 6-8 Cervix: deferred - Physical Exam Vitals/I&O's: Weight: 219 lb Body Mass Index (BMI) 45.8 Intake and Output for Last 24 Hours 12/30/18 12/31/18 01/01/19 23:59 23:59 23:59 Intake Total 1105.00 / 1105.00 45.50 / 45.50 1527.5 / 1527.5 Output Total 200 / 200 Balance 1105.00 / 1105.00 45.50 / 45.50 1327.5 / 1327.5 Current Medications Acetaminophen (Tylenol) 325 - 650 mg PO Q4H PRN PRN PRN Reason: Pain Score 1-3/10 Last Admin: 12/30/18 06:42 Dose: 650 mg Documented by: Al Hydroxide/Mg Hydroxide (Mylanta Ii) 15 - 30 ml PO Q4H PRN PRN PRN Reason: INDIGESTION Citric Acid/Sodium Citrate (Bicitra) 30 ml PO X1 PRN PRN Reason: Section Lactated Ringer's () 500 mls @ 999 mls/hr IV .Q31M PRN PRN Reason: Epidural Lactated Ringer's () 500 mls @ 999 mls/hr IV .Q31M PRN PRN Reason: Corrective Measures Last Admin: 01/01/19 13:01 Dose: 999 mls/hr Documented by: Lactated Ringer's () 1,000 mls @ 50 mls/hr IV .Q20H [facility] Last Infusion: 01/01/19 13:01 Dose: 0 mls/hr Documented by: Oxytocin/Sodium Chloride () 30 units in 500 mls @ 2 mls/hr IV .Q250H [facility]Y Last Admin: 01/01/19 11:17 Dose: 1 mls/hr Documented by: Nalbuphine HCl (Nubain) 5 - 10 mg IV Q3H PRN PRN PRN Reason: Pain Score 4-10/10 Ondansetron HCl (Zofran) 4 mg IV Q4H PRN PRN PRN Reason: NAUSEA Prochlorperazine Edisylate (Compazine Iv) 10 mg IV Q6H PRN PRN PRN Reason: NAUSEA Sodium Chloride () 10 - 40 ml IV X1 PRN PRN Reason: SALINE FLUSH Last Admin: 01/01/19 04:58 Dose: 10 ml Documented by: Medical Necessity - Tobacco Use Smoking Status: Never smoker Assessment/Plan All Active Problems 36 weeks gestation of (Acute) 36 weeks gestation of (Acute) Assessmet: 33yo at 36w5d gestation by 7w6d US Early labor AROM x 7 hours Cat 2 FHTs Plan: Continue w/slow pitocin augmentation, no increase beyond 1 mu at this time 500 ml LR bolus Close observation
--- NOTE | 2019-01-01 15:39 | PCM.PN.OB ---
Patient Problems: Active and Suspected Problems 36 weeks gestation of (Acute) 36 weeks gestation of (Acute) Subjective: Uncomfortable; feeling intense pressure at peak of contraction, but not between; requesting epidural; bedside and supportive; requests Dr. Reed for delivery Objective: AVSS FHTs: 150 baseline, moderate variability, no accels, repetitive variable decels UCs: Q 3-4 Pitocin: 1mu Cervix: 7/100/-2 - Physical Exam Vitals/I&O's: Weight: 219 lb Body Mass Index (BMI) 45.8 Intake and Output for Last 24 Hours 12/30/18 12/31/18 01/01/19 23:59 23:59 23:59 Intake Total 1105.00 / 1105.00 45.50 / 45.50 2704.17 / 2704.17 Output Total 200 / 200 Balance 1105.00 / 1105.00 45.50 / 45.50 2504.17 / 2504.17 General: Alert, Oriented x3, Cooperative HEENT: PERRLA, EOMI Oral: Moist Mucosa Neck: Supple Neurological: Cranial nerves II-XII grossly intact Psych/Mental Status: Normal Affect, Appropriate, Anxious, Alert and oriented to time, place, person, mood and affect Current Medications Acetaminophen (Tylenol) 325 - 650 mg PO Q4H PRN PRN PRN Reason: Pain Score 1-3/10 Last Admin: 12/30/18 06:42 Dose: 650 mg Documented by: Al Hydroxide/Mg Hydroxide (Mylanta Ii) 15 - 30 ml PO Q4H PRN PRN PRN Reason: INDIGESTION Citric Acid/Sodium Citrate (Bicitra) 30 ml PO X1 PRN PRN Reason: Section Lactated Ringer's () 500 mls @ 999 mls/hr IV .Q31M PRN PRN Reason: Epidural Lactated Ringer's () 500 mls @ 999 mls/hr IV .Q31M PRN PRN Reason: Corrective Measures Last Infusion: 01/01/19 14:56 Dose: Infused Documented by: Lactated Ringer's () 1,000 mls @ 50 mls/hr IV .Q20H [facility]Y Last Infusion: 01/01/19 14:56 Dose: 200 mls/hr Documented by: Oxytocin/Sodium Chloride () 30 units in 500 mls @ 2 mls/hr IV .Q250H [facility] Last Admin: 01/01/19 11:17 Dose: 1 mls/hr Documented by: Nalbuphine HCl (Nubain) 5 - 10 mg IV Q3H PRN PRN PRN Reason: Pain Score 4-10/10 Ondansetron HCl (Zofran) 4 mg IV Q4H PRN PRN PRN Reason: NAUSEA Prochlorperazine Edisylate (Compazine Iv) 10 mg IV Q6H PRN PRN PRN Reason: NAUSEA Sodium Chloride () 10 - 40 ml IV X1 PRN PRN Reason: SALINE FLUSH Last Admin: 01/01/19 04:58 Dose: 10 ml Documented by: Medical Necessity - Tobacco Use Smoking Status: Never smoker Assessment/Plan All Active Problems 36 weeks gestation of (Acute) 36 weeks gestation of (Acute) Assessment: 28yo at 40w5d gestation by L=6w4d US Active labor, minimal progression Cat 2 FHTs Plan: May have epidural Continued close observation, consider amnioinfusion Pediatrics, cord gases at at delivery Anticipate vaginal delivery
[2019-01-01] MEDS: fentaNYL-bupivacaine (epidural) 100 ML BAG EPIDURAL (15:47)
--- NOTE | 2019-01-01 16:20 | PN.OBGYN_ITS ---
Patient Problems: Active and Suspected Problems 36 weeks gestation of (Acute) 36 weeks gestation of (Acute) Objective: AVSS FHTs: 150 baseline, moderate variability, no accels, repetitive variables rubio ranging from 120 to 60 UCs: Q 3 Pitocin: off Cervix: deferred - Physical Exam Vitals/I&O's: Weight: 219 lb Body Mass Index (BMI) 45.8 Intake and Output for Last 24 Hours 12/30/18 12/31/18 01/01/19 23:59 23:59 23:59 Intake Total 1105.00 / 1105.00 45.50 / 45.50 2821.83 / 2821.83 Output Total 200 / 200 Balance 1105.00 / 1105.00 45.50 / 45.50 2621.83 / 2621.83 Current Medications Acetaminophen (Tylenol) 325 - 650 mg PO Q4H PRN PRN PRN Reason: Pain Score 1-3/10 Last Admin: 12/30/18 06:42 Dose: 650 mg Documented by: Al Hydroxide/Mg Hydroxide (Mylanta Ii) 15 - 30 ml PO Q4H PRN PRN PRN Reason: INDIGESTION Citric Acid/Sodium Citrate (Bicitra) 30 ml PO X1 PRN PRN Reason: Section Ephedrine Sulfate () 10 mg IV Q10M PRN PRN Reason: hypotension Ephedrine Sulfate () 10 mg IM Q30M PRN PRN Reason: hypotension Fentanyl/Bupivacaine/Sodium Chlor () 0 ml EPIDURAL [facility]; Protocol Lactated Ringer's () 500 mls @ 999 mls/hr IV .Q31M PRN PRN Reason: Epidural Last Admin: 01/01/19 15:42 Dose: 999 mls/hr Documented by: Lactated Ringer's () 500 mls @ 999 mls/hr IV .Q31M PRN PRN Reason: Corrective Measures Last Infusion: 01/01/19 14:56 Dose: Infused Documented by: Lactated Ringer's () 1,000 mls @ 50 mls/hr IV .Q20H [facility] Last Infusion: 01/01/19 15:30 Dose: 0 mls/hr Documented by: Oxytocin/Sodium Chloride () 30 units in 500 mls @ 2 mls/hr IV .Q250H [facility] Last Infusion: 01/01/19 15:37 Dose: 0 mls/hr Documented by: Naloxone HCl 4 mg/ Dextrose 504 mls @ 0 mls/hr IV .Q0M PRN; Protocol PRN Reason: To maintain Resp. rate >10 Nalbuphine HCl (Nubain) 5 - 10 mg IV Q3H PRN PRN PRN Reason: Pain Score 4-10/10 Nalbuphine HCl (Nubain) 5 mg IV Q3H PRN PRN PRN Reason: ITCHING Naloxone HCl (Narcan) 0.02 mg IV Q1M PRN PRN Reason: RR< 10 AND PT UNRESPONSIVE Ondansetron HCl (Zofran) 4 mg IV Q4H PRN PRN PRN Reason: NAUSEA Prochlorperazine Edisylate (Compazine Iv) 10 mg IV Q6H PRN PRN PRN Reason: NAUSEA Sodium Chloride () 10 - 40 ml IV X1 PRN PRN Reason: SALINE FLUSH Last Admin: 01/01/19 04:58 Dose: 10 ml Documented by: Medical Necessity - Tobacco Use Smoking Status: Never smoker Assessment/Plan All Active Problems 36 weeks gestation of (Acute) 36 weeks gestation of (Acute) Assessment: Assessment: 28yo at 40w5d gestation by L=6w4d Active labor, protracted Cat 2 FHTs Plan: Amnioinfusion, 200ml bolus then 60l maintenance per Dr. Reed O2 10L per
[2019-01-01] MEDS: Amnioinfusion- 0.9% NS 1,000 ML IV.SOLN. 200 ML INTRA-UTER (16:30)
[2019-01-01] MEDS: Oxytocin 30 units/NS 500 ml 30 UNITS/500 ML IV.SOLN 334 UNITS IV (20:01)
--- NOTE | 2019-01-01 20:11 | PCM.OPRPT ---
Vaginal Delivery Maternal Presentation: Active Labor Amniotic Membrane Rupture Type: Artificial Rupture of Membrane time: 0500 on 01/01/2019 Amniotic Fluid Description: Clear Final CICI: 01/23/19 Final CICI Source: US <20 weeks Gestational age: 36 Weeks and 6 Days doctor who attended delivery (if requested by OB): Dionne Mckeon - 36 weeks gestation Date of Procedure: 01/01/19 Pre-Operative Diagnosis: IUP Post-Operative Diagnosis: IUP Surgery/ Procedure Performed: Spontaneous Vaginal Delivery Type of Anesthesia: Epidural Description of Procedure: Spontaneous vaginal delivery of a viable male with Apgars of 8/9 from an occiput anterior presentation with clear amniotic fluid and normal three-vessel placenta. Cord around the neck x1 crossing chest extremely tight. First-degree midline laceration repaired with 3-0 repeat suture under epidural. No episiotomy. Sponges okay. Delivery physician: Benito Reed MD. Presentation: Vertex Placental Delivery Description: Spontaneous Placenta Disposition: [facility] Cord Vessel Description: 3 Vessels Cord Gases drawn per routine: ABG, VBG Cord Entanglement: Around neck x 1, tight Estimated Blood Loss: 250 cc A gender: Male (1 minute): 8 (5 minute): 9 Episiotomy Description: None Laceration: Midline, Perineal Extension/lac, 1st degree Medications given after delivery: IV Pitocin Complications: None
--- NOTE | 2019-01-01 20:16 | DCINST_ITS ---
<Benito Reed - Last Filed: 01/01/19 20:16> Discharge Diet: No Restrictions Discharge Activity: May Shower, May Take a Tub Bath May resume sexual activity in: 4-6 weeks Additional Activity Instructions:: Nothing in the vagina for 4-6 weeks. You may return to work/school in 6 weeks. Call your doctor if you observe: Fever of 101 or Higher, Inability to urinate, Inability to have a bowel movement, Using more than one pad per hour Additional Instructions: If you experience any of the following, contact your healthcare provider. * Bleeding that soaks a pad every hour for 2 hours * Unrelieved incision or abdominal pain * Swelling, redness, discharge or bleeding from your incision or episiotomy site * Your incision begins to separate * Problems urinating (including inability to urinate or burning while urinating). * Visual changes * Severe headache * Flu-like symptoms * Pain or redness in one of both of your breasts * Pain, warmth, tenderness or swelling in your legs, especially the calf area * Frequent nausea and vomiting * Symptoms of depression or anxiety If you experience any of the following, call 911 or go to the nearest Emergency Room. * Chest pain * Problems breathing * Seizure activity * Partial or complete paralysis of a body part, slurred speech, weakness or drooping of the face, or a sudden inability to walk or hold your balance Allergies/Adverse Reactions: Allergies No Known Allergies Allergy (Verified 12/30/18 03:32) Medications to take at Discharge Prenatabs FA 1 tab PO DAILY 12/30/18 Please Follow Up With: Benito Reed MD - [phone] When: Call to make an appointment with your doctor in 6 weeks. Primary Care Physician: So Naranjo CNM [Primary Care Provider] - Test Results: Test results from this visit will be discussed in further detail at your follow- up appointment, if applicable. <Haley Castaneda - Last Filed: 01/03/19 11:02> Additional Instructions: If you experience any of the following, contact your healthcare provider. * Bleeding that soaks a pad every hour for 2 hours * Fever 100.4 or higher * Unrelieved incision or abdominal pain * Swelling, redness, discharge or bleeding from your incision or episiotomy site * Your incision begins to separate * Problems urinating (including inability to urinate or burning while urinating). * Visual changes * Severe headache * Flu-like symptoms * Pain or redness in one of both of your breasts * Pain, warmth, tenderness or swelling in your legs, especially the calf area * Frequent nausea and vomiting * Symptoms of depression or anxiety If you experience any of the following, call 911 or go to the nearest Emergency Room. * Chest pain * Problems breathing * Seizure activity * Partial or complete paralysis of a body part, slurred speech, weakness or drooping of the face, or a sudden inability to walk or hold your balance Test Results: Test results from this visit will be discussed in further detail at your follow- up appointment, if applicable.
--- NOTE | 2019-01-01 20:16 | PCM.DCVAG ---
<Benito Reed - Last Filed: 01/01/19 20:16> Discharge Diet: No Restrictions Discharge Activity: May Shower, May Take a Tub Bath May resume sexual activity in: 4-6 weeks Additional Activity Instructions:: Nothing in the vagina for 4-6 weeks. You may return to work/school in 6 weeks. Call your doctor if you observe: Fever of 101 or Higher, Inability to urinate, Inability to have a bowel movement, Using more than one pad per hour Additional Instructions: If you experience any of the following, contact your healthcare provider. Bleeding that soaks a pad every hour for 2 hours Unrelieved incision or abdominal pain Swelling, redness, discharge or bleeding from your incision or episiotomy site Your incision begins to separate Problems urinating (including inability to urinate or burning while urinating). Visual changes Severe headache Flu-like symptoms Pain or redness in one of both of your breasts Pain, warmth, tenderness or swelling in your legs, especially the calf area Frequent nausea and vomiting Symptoms of depression or anxiety If you experience any of the following, call 911 or go to the nearest Emergency Room. Chest pain Problems breathing Seizure activity Partial or complete paralysis of a body part, slurred speech, weakness or drooping of the face, or a sudden inability to walk or hold your balance Allergies/Adverse Reactions: Allergies No Known Allergies Allergy (Verified 12/30/18 03:32) Medications to take at Discharge Prenatabs FA 1 tab PO DAILY 12/30/18 Please Follow Up With: Benito Reed MD - [phone] When: Call to make an appointment with your doctor in 6 weeks. Primary Care Physician: So Naranjo CNM [Primary Care Provider] - Test Results: Test results from this visit will be discussed in further detail at your follow-up appointment, if applicable. <Haley Castaneda - Last Filed: 01/03/19 11:02> Additional Instructions: If you experience any of the following, contact your healthcare provider. Bleeding that soaks a pad every hour for 2 hours Fever 100.4 or higher Unrelieved incision or abdominal pain Swelling, redness, discharge or bleeding from your incision or episiotomy site Your incision begins to separate Problems urinating (including inability to urinate or burning while urinating). Visual changes Severe headache Flu-like symptoms Pain or redness in one of both of your breasts Pain, warmth, tenderness or swelling in your legs, especially the calf area Frequent nausea and vomiting Symptoms of depression or anxiety If you experience any of the following, call 911 or go to the nearest Emergency Room. Chest pain Problems breathing Seizure activity Partial or complete paralysis of a body part, slurred speech, weakness or drooping of the face, or a sudden inability to walk or hold your balance Test Results: Test results from this visit will be discussed in further detail at your follow-up appointment, if applicable.
[2019-01-01] MEDS: Ibuprofen 600 MG Tablet PO (22:51)
[2019-01-01 23:35] VITALS: BP 115/60; PULSE 112; RESP 18; TEMP 36.1
[2019-01-02 03:05] VITALS: BP 119/67; PULSE 87; RESP 18; TEMP 36.7
[2019-01-02] MEDS: Ibuprofen 600 MG Tablet PO ×3 (05:08→22:33)
[2019-01-02 08:00] VITALS: BP 126/76; PULSE 95; RESP 16; TEMP 36.3
--- NOTE | 2019-01-02 09:28 | PCM.PN.OB ---
Patient Problems: Active and Suspected Problems 36 weeks gestation of (Acute) 36 weeks gestation of (Acute) Subjective: Pain well controlled, tolerating diet, passing flatus; infant with difficulty latching, pt is expressing and spoon feeding, may consider using bottle for supplementation while establishing Objective: AVSS Breasts soft, nipples atraumatic Fundus firm, midline, u/1 , lochia scant First degree midline laceration well approximated without erythema, edema or drainage - Physical Exam Vitals/I&O's: Vital Signs Temp Pulse Resp BP 97.4 F L 95 16 126/76 H 01/02/19 08:00 01/02/19 08:00 01/02/19 08:00 01/02/19 08:00 Oxygen Delivery Method Room Air Weight: 219 lb Body Mass Index (BMI) 45.8 Intake and Output for Last 24 Hours 12/31/18 01/01/19 01/02/19 23:59 23:59 23:59 Intake Total 45.50 / 45.50 4705.16 / 4705.16 Output Total 1350 / 1350 Balance 45.50 / 45.50 3355.16 / 3355.16 General: Alert, Oriented x3, Cooperative, No apparent distress HEENT: Atraumatic, PERRLA, EOMI Oral: Moist Mucosa Neck: Supple Lungs: Clear to auscultation, Normal air movement Cardiovascular: Regular rate, Regular Rhythm Abdomen: Bowel Sounds Present, Soft, Non Tender, Non-Distended, Passing Flatus Extremities: No edema, Capillary Refill Less than 3 Seconds, No Calf Tenderness Skin: No rashes Musculoskeletal: No Tenderness to Palpation of Joints or Extremities Neurological: Cranial nerves II-XII grossly intact, Deep Tendon Reflexes 2+/4 and Symmetrical Psych/Mental Status: Normal Affect, Appropriate, Alert and oriented to time, place, person, mood and affect Microbiology Past 72 Hours 12/30/18 Unknown Genital vaginal Group B Streptococcus Culture - Final Group B Beta Streptococcus is not isolated. Current Medications Acetaminophen (Tylenol) 1,000 mg PO Q8H PRN PRN PRN Reason: Pain Score 1-3/10 Bisacodyl (Dulcolax) 10 mg RECTAL UD PRN PRN Reason: If no BM Dibucaine (Dibucaine) 1 applic TOPICAL TID PRN PRN; Protocol PRN Reason: Discomfort Hydrocortisone (Hytone) 1 applic TOPICAL TID PRN PRN; Protocol PRN Reason: Discomfort Ibuprofen (Motrin) 600 mg PO Q6H PRN PRN PRN Reason: Pain Score 1-3/10 Last Admin: 01/02/19 05:08 Dose: 600 mg Documented by: Measles/Mumps/Rubella Vaccine Live (M-M-R Ii) 0.5 ml SC .ONCE ONE Stop: 01/02/19 10:01 Last Admin: 01/01/19 21:04 Dose: Not Given Documented by: Methylergonovine Maleate (Methergine) 0.2 mg IM X1 PRN PRN Reason: Excess bleeding/uterine atony Ondansetron HCl (Zofran) 4 mg IV Q4H PRN PRN PRN Reason: Nausea Senna/Docusate Sodium (Senokot-S, Nayeli-Colace) 1 - 2 tablet PO DAILY PRN PRN PRN Reason: Constipation Simethicone (Mylicon) 80 mg PO PCHS PRN PRN Reason: Indigestion/Stomach pain Sodium Chloride () 5 - 15 ml IV UD PRN PRN Reason: SALINE FLUSH Last Admin: 01/01/19 22:52 Dose: 10 ml Documented by: Zolpidem Tartrate (Ambien (Generic)) 5 mg PO QHS PRN PRN PRN Reason: Insomnia Medical Necessity - Tobacco Use Smoking Status: Never smoker Assessment/Plan All Active Problems 36 weeks gestation of (Acute) 36 weeks gestation of (Acute) Assessment: 33yo G3 now P0212 delivered at at 36w5d gestation by 7w6d US PP Day #1, normal involution, normal PP course Plan: Discharge teaching started consult today Continue routine care DC home tomorrow
[2019-01-02 12:00] VITALS: BP 116/64; PULSE 97; RESP 16; TEMP 36.2
[2019-01-02 15:00] VITALS: BP 120/85; PULSE 96; RESP 16; TEMP 36.4
--- NOTE | 2019-01-02 16:31 | NURSING ---
this RN agrees with the charting of the student nurse
[2019-01-02 20:37] VITALS: BP 112/82; PULSE 101; RESP 18; TEMP 36.5
[2019-01-03 01:20] VITALS: BP 133/80; PULSE 87; RESP 15; TEMP 36.6
[2019-01-03] MEDS: Ibuprofen 600 MG Tablet PO (07:13)
[2019-01-03 08:00] VITALS: BP 116/70; PULSE 74; RESP 14; TEMP 36.2
--- NOTE | 2019-01-03 10:59 | PCM.PN.OB ---
Subjective: Pain well controlled, tolerating diet, passing flatus, well; desires discharge home this morning Objective: AVSS Breasts filling, nipples atraumaticF Fundus firm, midline, u/2, lochia scant - Physical Exam Vitals/I&O's: Vital Signs Temp Pulse Resp BP 97.2 F L 74 14 116/70 01/03/19 08:00 01/03/19 08:00 01/03/19 08:00 01/03/19 08:00 Oxygen Delivery Method Room Air Weight: 219 lb Body Mass Index (BMI) 45.8 Intake and Output for Last 24 Hours 01/01/19 01/02/19 01/03/19 23:59 23:59 23:59 Intake Total 4705.16 / 4705.16 Output Total 1350 / 1350 Balance 3355.16 / 3355.16 General: Alert, Oriented x3, Cooperative, No apparent distress HEENT: PERRLA, EOMI Oral: Moist Mucosa Neck: Supple Lungs: Clear to auscultation, Normal air movement Cardiovascular: Regular rate, Regular Rhythm Abdomen: Bowel Sounds Present, Soft, Non Tender, Non-Distended, Passing Flatus Extremities: Capillary Refill Less than 3 Seconds, No Calf Tenderness, Clubbing - Congentital, R foot, Edema - bilateral lower extremities, R > L, non pitting, moderate; otherwise asymptomatic Skin: No rashes Musculoskeletal: No Tenderness to Palpation of Joints or Extremities Neurological: Cranial nerves II-XII grossly intact, Deep Tendon Reflexes 2+/4 and Symmetrical Psych/Mental Status: Normal Affect, Appropriate, Alert and oriented to time, place, person, mood and affect Microbiology Past 72 Hours 12/30/18 Unknown Genital vaginal Group B Streptococcus Culture - Final Group B Beta Streptococcus is not isolated. Current Medications Acetaminophen (Tylenol) 1,000 mg PO Q8H PRN PRN PRN Reason: Pain Score 1-3/10 Bisacodyl (Dulcolax) 10 mg RECTAL UD PRN PRN Reason: If no BM Dibucaine (Dibucaine) 1 applic TOPICAL TID PRN PRN; Protocol PRN Reason: Discomfort Hydrocortisone (Hytone) 1 applic TOPICAL TID PRN PRN; Protocol PRN Reason: Discomfort Ibuprofen (Motrin) 600 mg PO Q6H PRN PRN PRN Reason: Pain Score 1-3/10 Last Admin: 11/15/19 07:13 Dose: 600 mg Documented by: Methylergonovine Maleate (Methergine) 0.2 mg IM X1 PRN PRN Reason: Excess bleeding/uterine atony Senna/Docusate Sodium (Senokot-S, Nayeli-Colace) 1 - 2 tablet PO DAILY PRN PRN PRN Reason: Constipation Simethicone (Mylicon) 80 mg PO PCHS PRN PRN Reason: Indigestion/Stomach pain Medical Necessity - Tobacco Use Smoking Status: Never smoker Assessment/Plan All Active Problems 36 weeks gestation of (Acute) 36 weeks gestation of (Acute) Assessment: 33yo G3 now P0212 delivered at at 36w5d gestation by 7w6d US PP Day #2, normal involution, normal PP course Plan: Discharge teaching completed Breast feeding well established DC home today RTO 6 weeks for PP checkup
[2019-01-03 13:53] VITALS: BP 130/76; PULSE 90; RESP 14; TEMP 36.6
--- NOTE | 2019-01-07 11:36 | NURSING ---
Mother and baby doing well, some concern with milk supply but mother is doing some extra pumping and ordered some herbal supplements reminded her IBCLC's available to help. Satisfied with her care while here
== END 2019-01-03 14:35 | disposition home or self-care (01) | DRG 807 ==
LOC: WPOUT 07:03 → WP 07:08
PROVIDERS: Advanced Practice Midwife; Admitting Provider Obstetrics & Gynecology; Family Provider Obstetrics & Gynecology; PCP Obstetrics & Gynecology; Referring Provider Obstetrics & Gynecology; Visit Provider Obstetrics & Gynecology
DX: O69.1XX0 Labor and delivery complicated by cord around neck, with compression, not applicable or unspecified (principal); Z37.0 Single live birth; Z3A.36 36 weeks gestation of pregnancy; Q63.2 Ectopic kidney; O70.0 First degree perineal laceration during delivery
CPT/HCPCS: 36415; 59025; 59050; 76815; 80048; 81050; 82570; 84156; 85025; 86850; 86900; 86901; 87081; 87653; 96372; 99218; J7030; J7120; A4216; G0378; J0702